=== PATIENT | male | born 1990 | race Caucasian/White ===

== ENCOUNTER 2018-01-30 19:03 | Emergency (ER) | payer SELFPAY, OTHER ==
[2018-01-30] MEDS: TETANUS/DIPHTHERIA TOX ADSORB ADULT 0.5ML SYR/VIAL (90714) IM (22:30)
[2018-01-30] MEDS: AUGMENTIN 875 MG TAB PO (22:30)
== END 2018-01-30 23:15 | disposition home or self-care (01) ==
LOC: M ED 19:03
DX: S61.451A Open bite of right hand, initial encounter (principal); W54.0XXA Bitten by dog, initial encounter; Y92.89 Other specified places as the place of occurrence of the external cause; F17.210 Nicotine dependence, cigarettes, uncomplicated
CPT/HCPCS: 90714